=== PATIENT | male | born 1970 | race Caucasian/White ===

== ENCOUNTER 2016-07-24 20:27 | Emergency (ER) | payer OTHER ==
[~2016-07-24 20:27] MED LIST: CILOXAN5 ML OP; FLEXERIL10 MG PO; LORTAB 10-5001 EACH PO; NEURONTIN PO; ORUDIS75 M1 DOB; PEN-VEE K PO; PERCOCET 10/3251 TAB PO; PREDNISONE PO; PREDNISONE50 MG PO; TOBREX 0.3% OP3.5 GM OD; VIBRAMYCIN100 M1 PO
== END 2016-07-24 20:35 | disposition home or self-care (01) ==
LOC: CFTX 20:27
DX: H65.02 Acute serous otitis media, left ear (principal); H92.01 Otalgia, right ear; J02.9 Acute pharyngitis, unspecified; F17.210 Nicotine dependence, cigarettes, uncomplicated
CPT/HCPCS: 99282